=== PATIENT | female | born 1975 | race African-American/Black ===

== ENCOUNTER 2022-07-15 10:39 | Emergency (ER) | payer OTHER ==
[2022-07-15] MEDS ORDERED: DEXAMETHASONE SOD PHOSPHATE 10 MG/1 ML VIAL PO ONE (10:48)
[2022-07-15 10:57] VITALS: BMI 25.7
[2022-07-15] MEDS ORDERED: ALBUTEROL SO4 2.5/IPRATROPIUM 0.5 INH SOL 3 ML VIAL.NEB. NEB SCH (11:00)
[2022-07-15] MEDS ORDERED: ACETAMINOPHEN 1000 MG/100 ML BAG IVPB ONE (11:34)
[2022-07-15] MEDS ORDERED: SODIUM CHLORIDE 500 ML IV STA (11:52)
[2022-07-15] MEDS ORDERED: ACETAMINOPHEN INJECTION 100 ML IVPB ONE (11:54)
[2022-07-15 12:10] LABS: HEMATOCRIT 37.3 % (32.4-45.2); HEMOGLOBIN 12.5 GM/dL (10.7-15.3); MCH 26.1 pg (25.7-33.7); MCHC 33.7 g/dl (32.0-36.0); MEAN CELL VOLUME 77.4 fl (80-96); MEAN PLT VOLUME 8.6 fl (7.5-11.1); PLATELET COUNT 298 10^3/uL (134-434); RBC 4.82 M/mm3 (3.60-5.2); RDW 15.3 % (11.6-15.6); WHITE BLOOD COUNT 4.6 K/mm3 (4.0-10.0)
[2022-07-15 12:31] LABS: POTASSIUM 5.1 mmol/L (3.5-5.1)
[2022-07-15 12:35] LABS: CALCIUM 9.5 mg/dL (8.5-10.1)
[2022-07-15 12:36] LABS: ALBUMIN 3.6 g/dl (3.4-5.0)
[2022-07-15 12:39] LABS: CREATININE 0.7 mg/dL (0.55-1.3)
[2022-07-15 12:40] LABS: BILIRUBIN,TOTAL 0.7 mg/dL (0.2-1); TOT PROT 7.4 g/dl (6.4-8.2)
[2022-07-15 15:21] VITALS: BP 135/78; PULSE 77; RESP 19; TEMP 97.8
== END 2022-07-15 14:50 | disposition short-term general hospital (02) ==
LOC: JERFT 10:39
PROC: 3E033NZ Introduction of Analgesics, Hypnotics, Sedatives into Peripheral Vein, Percutaneous Approach (ICD-10-PCS; principal; 2022-07-15)
PROC: 3E0337Z Introduction of Electrolytic and Water Balance Substance into Peripheral Vein, Percutaneous Approach (ICD-10-PCS; 2022-07-15)
DX: R51.9 Headache, unspecified (principal); H40.052 Ocular hypertension, left eye; Z20.822 Contact with and (suspected) exposure to COVID-19
CPT/HCPCS: 0241U-QW; 36415; 70450-TC; 76512; 80053; 84484; 85027; 93005; 93010; 99284-25

== ENCOUNTER 2023-09-12 19:48 | Observation (INO) | payer SELFPAY ==
[2023-09-12 20:03] VITALS: BMI 27.4
[2023-09-13 00:16] LABS: BASO % 0.3 % (0-2.0); HEMATOCRIT 37.7 % (32.4-45.2); HEMOGLOBIN 12.5 GM/dL (10.7-15.3); LYMPH % 36.3 % (8-40); MCH 26.3 pg (25.7-33.7); MCHC 33.2 g/dl (32.0-36.0); MEAN CELL VOLUME 79.2 fl (80-96); MEAN PLT VOLUME 8.9 fl (7.5-11.1); MONO % 5.6 % (3.8-10.2); NEUT % 56.8 % (42.8-82.8); PLATELET COUNT 252 10^3/uL (134-434); RBC 4.76 M/mm3 (3.60-5.2); RDW 15.1 % (11.6-15.6); WHITE BLOOD COUNT 6.1 K/mm3 (4.0-10.0)
[2023-09-13 00:33] LABS: POTASSIUM 4.2 mmol/L (3.5-5.1)
[2023-09-13] MEDS ORDERED: ACETAMINOPHEN INJECTION 100 ML IVPB ONE (00:33)
[2023-09-13 00:34] LABS: CALCIUM 9.4 mg/dL (8.5-10.1); MAGNESIUM 2.4 mg/dL (1.8-2.4)
[2023-09-13 00:36] LABS: BLOOD UREA NITROGEN 12.9 mg/dL (7-18)
[2023-09-13] MEDS: ACETAMINOPHEN 1000 MG/100 ML BAG IVPB ONE (00:38)
[2023-09-13 00:39] LABS: CREATININE 0.9 mg/dL (0.55-1.3); PHOSPHOROUS 4.9 mg/dL (2.5-4.9); TOT PROT 7.7 g/dl (6.4-8.2)
[2023-09-13 00:41] LABS: BILIRUBIN,TOTAL 0.2 mg/dL (0.2-1)
[2023-09-13 02:03] LABS: INR 0.95 (0.83-1.09); PROTHROMBIN TIME (PATIENT) 10.9 SEC (9.7-13.0)
[2023-09-13 02:06] LABS: ACTIVATED PTT 32.2 SECONDS (25.2-36.5)
[2023-09-13] MEDS ORDERED: ATORVASTATIN CA 40 MG TABLET (FP) ONE (03:14)
[2023-09-13] MEDS: ASPIRIN 81 MG CHEWABLE TABLETS PO ONE (03:19)
[2023-09-13] MEDS: ATORVASTATIN CA 80 MG TABLET (FP) PO ONE (03:19)
[2023-09-13 06:36] LABS: HEMATOCRIT 37.4 % (32.4-45.2); HEMOGLOBIN 12.2 GM/dL (10.7-15.3); MCH 25.9 pg (25.7-33.7); MCHC 32.5 g/dl (32.0-36.0); MEAN CELL VOLUME 79.6 fl (80-96); MEAN PLT VOLUME 8.8 fl (7.5-11.1); PLATELET COUNT 216 10^3/uL (134-434); RDW 14.4 % (11.6-15.6); WHITE BLOOD COUNT 4.9 K/mm3 (4.0-10.0)
[2023-09-13 06:57] LABS: POTASSIUM 3.9 mmol/L (3.5-5.1)
[2023-09-13 07:00] LABS: BLOOD UREA NITROGEN 12.4 mg/dL (7-18); CALCIUM 9.3 mg/dL (8.5-10.1)
[2023-09-13 07:04] LABS: CREATININE 0.9 mg/dL (0.55-1.3)
[2023-09-13 11:55] LABS: EPI CELLS 26 /uL (0-25.1); HYALINE CASTS 2 /uL (0-3.1); URINE APPEARANCE CLEAR; URINE BACTERIA 1111 /uL (0-1359); URINE BILIRUBIN NEGATIVE (NEGATIVE); URINE COLOR YELLOW; URINE GLUCOSE (UA) NEGATIVE (NEGATIVE); URINE KETONE NEGATIVE (NEGATIVE); URINE LEUK ESTERASE 1+ (NEGATIVE); URINE NITRITE NEGATIVE (NEGATIVE); URINE PROTEIN NEGATIVE (NEGATIVE); URINE RBC 10 /uL (0-23.9); URINE UROBILINOGEN 0.2 mg/dL (0.2-1.0); URINE WBC 94 /uL (0-25.8)
[2023-09-13] MEDS: ENOXAPARIN NA (PORCINE) 40 MG/0.4 ML DISP.SYRIN SQ SCH (14:34)
[2023-09-13] MEDS: ASPIRIN 81 MG CHEWABLE TABLETS PO SCH (14:34)
[2023-09-13] MEDS: ATORVASTATIN CA 40 MG TABLET (FP) PO SCH (21:19)
[2023-09-14 09:25] LABS: BASO % 0.5 % (0-2.0); EOS % 1.6 % (0-4.5); HEMATOCRIT 38.2 % (32.4-45.2); HEMOGLOBIN 12.6 GM/dL (10.7-15.3); LYMPH % 43.3 % (8-40); MCHC 32.9 g/dl (32.0-36.0); MEAN CELL VOLUME 79.1 fl (80-96); MONO % 7.1 % (3.8-10.2); NEUT % 47.5 % (42.8-82.8); PLATELET COUNT 244 10^3/uL (134-434); RBC 4.83 M/mm3 (3.60-5.2); RDW 14.6 % (11.6-15.6); WHITE BLOOD COUNT 4.3 K/mm3 (4.0-10.0)
[2023-09-14 09:46] LABS: POTASSIUM 4.1 mmol/L (3.5-5.1)
[2023-09-14 09:49] LABS: ALBUMIN 3.6 g/dl (3.4-5.0)
[2023-09-14 09:53] LABS: BLOOD UREA NITROGEN 14.6 mg/dL (7-18); CALCIUM 9.3 mg/dL (8.5-10.1)
[2023-09-14 09:56] LABS: CREATININE 0.8 mg/dL (0.55-1.3)
[2023-09-14 10:00] LABS: BILIRUBIN,TOTAL 0.4 mg/dL (0.2-1)
[2023-09-14 10:05] LABS: TOT PROT 7.3 g/dl (6.4-8.2)
[2023-09-14] MEDS: ACETAMINOPHEN 1000 MG/100 ML BAG IVPB PRN (14:07)
[2023-09-14] MEDS ORDERED: hydrALAZINE HCL 10 MG TABLET PO PRN ×2 (18:20→18:29)
[2023-09-15 09:25] VITALS: BP 132/90; PULSE 66; RESP 16; TEMP 97.9
== END 2023-09-15 14:10 | disposition home or self-care (01) ==
LOC: JER 19:48 → JERBED 22:05 → J4S 09-13 20:04
PROVIDERS: ADMIT Internal Medicine; ATTEND Internal Medicine
CPT/HCPCS: 0241U-QW; 36415; 70450-TC; 70551-TC; 71046-TC-FY; 80048; 80053; 80061; 81003; 83036; 83735; 84100; 84443; 84478; 84484; 85025; 85027; 85610; 85730; 86850; 86900; 86901; 93005; 93010; 93306-TC; 93880-TC; 97116-GP; 97161-GP; 99285-25; G0378; J0131